=== PATIENT | female | born 1945 | race Caucasian/White ===

== ENCOUNTER 2017-04-02 20:33 | Inpatient (IN) | payer MEDICAID, OTHER ==
[~2017-04-02] VITALS: Ht 152.4 cm; Wt 57.4 kg
[~2017-04-02 20:33] MED LIST: ALEN70TA69 PO; ATOR10TA69 PO; BENZ0.5T6 PO; CALC-895 PO; CARB200T PO; CLOT15CR62 TP; DIVA250T4 PO; DIVA500T35 PO; DOCU100T PO; LEVO250P6 IV; LEVO500 PO; LISI2.5T2 PO; RISP1TAB26 PO
[2017-04-02] MEDS ORDERED: VITAD1000 PO (20:46)
[2017-04-02] MEDS ORDERED: CLOT113C TP (20:46)
[2017-04-02] MEDS ORDERED: LACT30L PO (20:46)
[2017-04-02] MEDS ORDERED: LISI-662 PO (20:46)
[2017-04-02 21:20] LABS: BASOPHILS # (AUTO) 0.05 K/uL (0.00-0.20); BASOPHILS % (AUTO) 1.4 % (0.0-2.0); EOSINOPHILS # (AUTO) 0.03 K/uL (0.00-0.70); EOSINOPHILS % (AUTO) 0.75 % (1.0-6.0); HEMATOCRIT 31.3 % (36-46); HEMOGLOBIN 10.7 g/dL (12.0-16.0); LYMPHOCYTES # (AUTO) 2.2 K/uL (1.0-4.8); LYMPHOCYTES % (AUTO) 54.5 % (22.0-44.0); MEAN CORPUSCULAR HEMOGLOBIN 32.2 pg (26.0-34.0); MEAN CORPUSCULAR HGB CONC 34.3 G/dL (31.0-37.0); MEAN CORPUSCULAR VOLUME 94 fL (80-100); MONOCYTES # (AUTO) 0.4 K/uL (0.1-1.0); MONOCYTES % (AUTO) 9.9 % (2.0-9.0); NEUTROPHILS # (AUTO) 1.4 K/uL (1.8-7.7); NEUTROPHILS % (AUTO) 33.5 % (40.0-70.0); PLATELET COUNT (AUTO) 161 K/uL (150-450); RED BLOOD CELL COUNT(AUTO) 3.34 MIL/uL (4.00-5.20); RED CELL DISTRIBUTION WIDTH 12.8 % (11.5-14.5)
[2017-04-02 21:59] LABS: ALANINE AMINOTRANSFERASE 10 U/L (12-78); ALBUMIN 3.1 g/dL (3.4-5.0); ALKALINE PHOSPHATASE 43 U/L (46-116); ANION GAP 8 mmol/L (8-16); ASPARTATE AMINOTRANSFERASE 13 U/L (15-37); BILIRUBIN,TOTAL 0.3 mg/dL (0.1-1.0); CALCIUM, TOTAL 8.6 mg/dL (8.8-10.5); CARBON DIOXIDE 24 mmol/L (22-29); CHLORIDE 92 mmol/L (98-107); CREATININE 0.76 mg/dL (0.60-1.30); GLOMERULAR FILTR. RATE CALC > 60 mL/min (>60); GLUCOSE,RANDOM 91 mg/dL (70-110); LIPASE 214 U/L (73-393); POTASSIUM 4.3 mmol/L (3.5-5.1); TOTAL PROTEIN, SERUM 6.6 g/dL (6.4-8.2); UREA NITROGEN, BLOOD 6 mg/dL (7-18)
[2017-04-02 22:01] LABS: SODIUM SERUM 124 mmol/L (136-145)
[2017-04-02 22:12] LABS: GLUCOSE,POINT OF CARE 106 MG/DL (70-110)
[2017-04-02] MEDS ORDERED: SODIUM CHLORIDE 0.9% 1,000 ML IV ONE ×2 (22:15→23:15)
[2017-04-02 22:17] LABS: CARBAMAZEPINE (TEGRETOL) 2.7 mcg/mL (4.0-12.0)
[2017-04-02] MEDS ORDERED: LORazepam 2 MG/ML VIAL IVP PRN (23:15)
[2017-04-02] MEDS ORDERED: MAGNESIUM SULFATE 2 GM in DEXTROSE 5%-WATER 50 ML IV PRN (23:15)
[2017-04-02] MEDS ORDERED: MAGNESIUM SULFATE 4 GM/WATER 100 ML IV PRN (23:15)
[2017-04-02] MEDS ORDERED: POTASSIUM CHLORIDE 20 MEQ ER TABLET PO PRN (23:15)
[2017-04-02] MEDS ORDERED: POTASSIUM CHL 10 MEQ/WATER 50 ML IV PRN (23:15)
[2017-04-02] MEDS ORDERED: ACETAMINOPHEN 325 MG TABLET PO PRN (23:15)
[2017-04-02] MEDS ORDERED: ONDANSETRON HCL 4 MG/2 ML VIAL IVP PRN (23:15)
[2017-04-02] MEDS ORDERED: MAGNESIUM HYDROXIDE SUSPENSION 30 ML UDCUP PO PRN (23:15)
[2017-04-03] VITALS (7 sets, daily range): BP systolic 109–159; BP diastolic 56–87
[2017-04-03] MEDS: HEPARIN SODIUM,PORCINE 5,000 UNITS/ML VIAL SQ SCH ×4 (00:51→23:55)
[2017-04-03] MEDS: MAGNESIUM OXIDE 400 MG TABLET PO PRN ×3 (00:51→05:20)
[2017-04-03] MEDS ORDERED: INFLUENZA VIRUS VACCINE QVS 2017-18 (3YR+)/PF 60 MCG/0.5 ML SYRINGE IM ONE (04:30)
[2017-04-03 06:19] LABS: BASOPHILS % (AUTO) 0.8 % (0.0-2.0); HEMATOCRIT 29.3 % (36-46); HEMOGLOBIN 10.3 g/dL (12.0-16.0); LYMPHOCYTES # (AUTO) 1.9 K/uL (1.0-4.8); LYMPHOCYTES % (AUTO) 51.1 % (22.0-44.0); MEAN CORPUSCULAR HGB CONC 35.1 G/dL (31.0-37.0); MEAN CORPUSCULAR VOLUME 94 fL (80-100); MONOCYTES # (AUTO) 0.4 K/uL (0.1-1.0); MONOCYTES % (AUTO) 11.7 % (2.0-9.0); NEUTROPHILS # (AUTO) 1.3 K/uL (1.8-7.7); NEUTROPHILS % (AUTO) 35.4 % (40.0-70.0); PLATELET COUNT (AUTO) 161 K/uL (150-450); RED BLOOD CELL COUNT(AUTO) 3.12 MIL/uL (4.00-5.20); RED CELL DISTRIBUTION WIDTH 12.9 % (11.5-14.5)
[2017-04-03 07:07] LABS: ANION GAP 6 mmol/L (8-16); CARBON DIOXIDE 24 mmol/L (22-29); CHLORIDE 101 mmol/L (98-107); CREATININE 0.73 mg/dL (0.60-1.30); GLOMERULAR FILTR. RATE CALC > 60 mL/min (>60); GLUCOSE,RANDOM 80 mg/dL (70-110); POTASSIUM 4.2 mmol/L (3.5-5.1); SODIUM SERUM 131 mmol/L (136-145); THYROID STIMULATING HORMONE 6.64 uIU/mL (0.36-3.74); UREA NITROGEN, BLOOD 4 mg/dL (7-18)
[2017-04-03] MEDS: DOCUSATE SODIUM 100 MG CAPSULE PO SCH ×2 (08:42→20:40)
[2017-04-03] MEDS: LISINOPRIL 10 MG TABLET PO SCH (08:42)
[2017-04-03] MEDS: CarBAMazepine 200 MG TABLET PO SCH ×3 (08:42→20:40)
[2017-04-03] MEDS: ASPIRIN 81 MG CHEWABLE TABLET PO SCH (08:42)
[2017-04-03] MEDS: PANTOPRAZOLE SODIUM 40 MG DR TABLET PO SCH (08:42)
[2017-04-03] MEDS: DIVALPROEX SODIUM 500 MG DR TABLET PO SCH ×2 (08:43→20:40)
[2017-04-03] MEDS: METOPROLOL TARTRATE 25 MG TABLET PO SCH (20:40)
[2017-04-04 04:56] VITALS: BP 130/69
[2017-04-04 07:16] LABS: ANION GAP 6 mmol/L (8-16); CALCIUM, TOTAL 8.2 mg/dL (8.8-10.5); CARBON DIOXIDE 25 mmol/L (22-29); CHLORIDE 104 mmol/L (98-107); CREATININE 0.86 mg/dL (0.60-1.30); GLOMERULAR FILTR. RATE CALC > 60 mL/min (>60); GLUCOSE,RANDOM 78 mg/dL (70-110); POTASSIUM 4.7 mmol/L (3.5-5.1); SODIUM SERUM 135 mmol/L (136-145); UREA NITROGEN, BLOOD 11 mg/dL (7-18)
[2017-04-04 07:28] VITALS: BP 148/63
[2017-04-04] MEDS: HEPARIN SODIUM,PORCINE 5,000 UNITS/ML VIAL SQ SCH ×2 (08:29→16:00)
[2017-04-04] MEDS: CarBAMazepine 200 MG TABLET PO SCH ×2 (08:30→16:00)
[2017-04-04] MEDS: METOPROLOL TARTRATE 25 MG TABLET PO SCH (08:30)
[2017-04-04] MEDS: PANTOPRAZOLE SODIUM 40 MG DR TABLET PO SCH (08:30)
[2017-04-04] MEDS: DOCUSATE SODIUM 100 MG CAPSULE PO SCH (08:30)
[2017-04-04] MEDS: LISINOPRIL 10 MG TABLET PO SCH (08:30)
[2017-04-04] MEDS: DIVALPROEX SODIUM 500 MG DR TABLET PO SCH (08:30)
[2017-04-04] MEDS: ASPIRIN 81 MG CHEWABLE TABLET PO SCH (08:31)
[2017-04-04 11:20] VITALS: BP 127/55
[2017-04-04 15:06] VITALS: BP 140/64
== END 2017-04-04 17:22 | disposition home or self-care (01) | DRG 53 ==
LOC: EMS 20:34 → 5N 23:22
PROVIDERS: ADMIT Internal Medicine; ATTEND Internal Medicine
PROC: 3E0234Z Introduction of Serum, Toxoid and Vaccine into Muscle, Percutaneous Approach (ICD-10-PCS; principal; 2017-04-03)
DX: G40.909 Epilepsy, unspecified, not intractable, without status epilepticus (principal); I47.2 Ventricular tachycardia; E87.1 Hypo-osmolality and hyponatremia; F03.90 Unspecified dementia, unspecified severity, without behavioral disturbance, psychotic disturbance, mood disturbance, and anxiety; R53.81 Other malaise; E78.5 Hyperlipidemia, unspecified; F79 Unspecified intellectual disabilities; I10 Essential (primary) hypertension; R62.50 Unspecified lack of expected normal physiological development in childhood; Z23 Encounter for immunization
CPT/HCPCS: 82948; 82962; 83735; 84443; 87081; 90471; 93005; 93306; 96360; 97162; 99285; G0480; J1644; J7030

== ENCOUNTER 2019-05-03 12:16 | Emergency (ER) | payer OTHER ==
[~2019-05-03] VITALS: Ht 147.3 cm; Wt 59.1 kg
[~2019-05-03 12:16] MED LIST changes: +ALEN70TA19 PO; -ALEN70TA69 PO; +BENZ0.5T44 PO; -BENZ0.5T6 PO; -CARB200T PO; +CHOL100018 PO; -CLOT15CR62 TP; +DIVA-78 PO; -DIVA250T4 PO; -DIVA500T35 PO; +LACT30L PO; -LEVO250P6 IV; -LEVO500 PO; +LISI-662 PO; -LISI2.5T2 PO
[2019-05-03] MEDS ORDERED: DIVA-76 PO ×2 (12:49)
[2019-05-03] MEDS ORDERED: CARB100 PO ×3 (12:49)
[2019-05-03] MEDS ORDERED: RISP1 PO (12:49)
[2019-05-03 13:14] LABS: BASOPHILS % (AUTO) 0.6 % (0.0-2.0); EOSINOPHILS % (AUTO) 0.6 % (1.0-6.0); HEMATOCRIT 34.1 % (36-46); HEMOGLOBIN 11.8 g/dL (12.0-16.0); LYMPHOCYTES # (AUTO) 1.3 K/uL (1.0-4.8); LYMPHOCYTES % (AUTO) 30.3 % (22.0-44.0); MEAN CORPUSCULAR HEMOGLOBIN 32.7 pg (26.0-34.0); MEAN CORPUSCULAR HGB CONC 34.7 G/dL (31.0-37.0); MEAN CORPUSCULAR VOLUME 94 fL (80-100); MONOCYTES # (AUTO) 0.4 K/uL (0.1-1.0); MONOCYTES % (AUTO) 8.6 % (2.0-9.0); NEUTROPHILS # (AUTO) 2.6 K/uL (1.8-7.7); NEUTROPHILS % (AUTO) 59.9 % (40.0-70.0); PLATELET COUNT (AUTO) 165 K/uL (150-450); RED BLOOD CELL COUNT(AUTO) 3.62 MIL/uL (4.00-5.20); RED CELL DISTRIBUTION WIDTH 12.5 % (11.5-14.5)
[2019-05-03 13:29] LABS: ANION GAP 9 mmol/L (8-16); CALCIUM, TOTAL 8.8 mg/dL (8.8-10.5); CARBON DIOXIDE 25 mmol/L (22-29); CHLORIDE 99 mmol/L (98-107); CREATININE 0.72 mg/dL (0.60-1.30); GLUCOSE,RANDOM 99 mg/dL (70-110); SODIUM SERUM 133 mmol/L (136-145); UREA NITROGEN, BLOOD 11 mg/dL (7-18)
[2019-05-03 13:30] LABS: GLOMERULAR FILTR. RATE CALC > 60 mL/min (>60)
[2019-05-03] MEDS ORDERED: LORazepam 2 MG/ML VIAL IM ONE (13:30)
[2019-05-03 13:34] LABS: ALANINE AMINOTRANSFERASE 7 U/L (12-78); ALKALINE PHOSPHATASE 39 U/L (46-116); ASPARTATE AMINOTRANSFERASE 17 U/L (15-37); BILIRUBIN,TOTAL 0.2 mg/dL (0.1-1.0); TOTAL PROTEIN, SERUM 6.9 g/dL (6.4-8.2)
[2019-05-03] MEDS ORDERED: MORPHINE SULFATE 4 MG/ML SYRINGE IVP ONE (17:30)
[2019-05-03 17:32] LABS: BAND NEUTROPHILS % (MANUAL) 0 % (0-5)
[2019-05-03 17:33] LABS: HEMATOCRIT 33.9 % (36-46); HEMOGLOBIN 11.7 g/dL (12.0-16.0); MEAN CORPUSCULAR HEMOGLOBIN 32.5 pg (26.0-34.0); MEAN CORPUSCULAR HGB CONC 34.5 G/dL (31.0-37.0); MEAN CORPUSCULAR VOLUME 94 fL (80-100); PLATELET COUNT (AUTO) 171 K/uL (150-450); RED CELL DISTRIBUTION WIDTH 12.4 % (11.5-14.5)
[2019-05-03 17:44] LABS: ANION GAP 8 mmol/L (8-16); CALCIUM, TOTAL 8.7 mg/dL (8.8-10.5); CARBON DIOXIDE 25 mmol/L (22-29); CHLORIDE 98 mmol/L (98-107); CREATININE 0.72 mg/dL (0.60-1.30); GLUCOSE,RANDOM 98 mg/dL (70-110); POTASSIUM 4.2 mmol/L (3.5-5.1); SODIUM SERUM 131 mmol/L (136-145); UREA NITROGEN, BLOOD 13 mg/dL (7-18)
[2019-05-03 17:51] LABS: GLOMERULAR FILTR. RATE CALC > 60 mL/min (>60)
[2019-05-03 17:53] LABS: ALANINE AMINOTRANSFERASE 12 U/L (12-78); ALKALINE PHOSPHATASE 40 U/L (46-116); ASPARTATE AMINOTRANSFERASE 18 U/L (15-37); BILIRUBIN,TOTAL 0.2 mg/dL (0.1-1.0); TOTAL PROTEIN, SERUM 7.2 g/dL (6.4-8.2)
[2019-05-03 19:07] LABS: LYMPHOCYTES % (MANUAL) 13 % (22-44); MONOCYTES % (MANUAL) 9 % (2-9); SEGMENTED NEUTROPHILS % 78 % (40-70)
[2019-05-03 19:26] VITALS: BP 132/69
== END 2019-05-03 20:19 | disposition short-term general hospital (02) ==
LOC: EMS 12:18
DX: S02.31XA Fracture of orbital floor, right side, initial encounter for closed fracture (principal); S02.2XXA Fracture of nasal bones, initial encounter for closed fracture; S02.42XA Fracture of alveolus of maxilla, initial encounter for closed fracture; S01.111A Laceration without foreign body of right eyelid and periocular area, initial encounter; I10 Essential (primary) hypertension; Z79.899 Other long term (current) drug therapy; W19.XXXA Unspecified fall, initial encounter; Y93.89 Activity, other specified; Y92.89 Other specified places as the place of occurrence of the external cause; Y99.8 Other external cause status
CPT/HCPCS: 12011; 36415; 70450; 70486; 72125; 80053; 85007; 85025; 85027; 96372; 96374; 99291; J2060; J2270